=== PATIENT | male | born 1970 | race Two or more races ===

== ENCOUNTER 2018-01-04 11:52 | Emergency (ER) | payer MEDICAID, OTHER ==
[~2018-01-04] VITALS: Ht 172.7 cm; Wt 118.2 kg
[~2018-01-04 11:52] MED LIST: AMLO10TA PO; GLYB5TAB7 PO; LISI-600 PO; METF-438 PO; ONDA4TAB6 PO; TERA1CAP4 PO
[2018-01-04 12:10] VITALS: BP 159/108
[2018-01-04] MEDS ORDERED: LIDOcaine 1.5% w/epinephrine 1:200,000 5ml ampul IJ ONE (12:30)
[2018-01-04] MEDS ORDERED: HYDROcodone/acetaminophen 5mg/325mg tablet PO ONE (12:30)
[2018-01-04] MEDS ORDERED: ACET-3067 PO (13:06)
[2018-01-04] MEDS ORDERED: AMOX-422 PO (13:06)
[2018-01-04] MEDS ORDERED: LIDOcaine 1% w/epiNEPHrine 1:200,000 30ml vial IJ ONE (15:10)
== END 2018-01-04 13:31 | disposition home or self-care (01) ==
LOC: ER 11:53
DX: S61.411A Laceration without foreign body of right hand, initial encounter (principal); S61.451A Open bite of right hand, initial encounter; I10 Essential (primary) hypertension; E11.9 Type 2 diabetes mellitus without complications; Z79.899 Other long term (current) drug therapy; W54.0XXA Bitten by dog, initial encounter; Y93.89 Activity, other specified; Y92.89 Other specified places as the place of occurrence of the external cause; Y99.9 Unspecified external cause status
CPT/HCPCS: 12002; 73130; 99283; J3490

== ENCOUNTER 2018-01-14 11:13 | Emergency (ER) | payer OTHER ==
[~2018-01-14] VITALS: Ht 172.7 cm; Wt 120.0 kg
[2018-01-14 11:18] VITALS: BP 155/95
[2018-01-14] MEDS ORDERED: AMOX-422 PO (12:24)
== END 2018-01-14 12:41 | disposition home or self-care (01) ==
LOC: ER 11:15
DX: S61.411D Laceration without foreign body of right hand, subsequent encounter (principal); S61.451D Open bite of right hand, subsequent encounter; I10 Essential (primary) hypertension; E11.9 Type 2 diabetes mellitus without complications; Z79.84 Long term (current) use of oral hypoglycemic drugs; Z79.2 Long term (current) use of antibiotics; Z79.899 Other long term (current) drug therapy; W54.0XXD Bitten by dog, subsequent encounter
CPT/HCPCS: 99283

== ENCOUNTER 2018-04-22 02:15 | Emergency (ER) | payer MEDICAID, OTHER ==
[~2018-04-22] VITALS: Ht 172.7 cm; Wt 122.7 kg
[2018-04-22] MEDS ORDERED: cephalexin 250mg capsule PO ONE (03:35)
[2018-04-22] MEDS ORDERED: CEPH250T PO (03:36)
[2018-04-22] MEDS ORDERED: TRIA15CR61 TOP (03:36)
[2018-04-22] MEDS ORDERED: insulin regular, human 10 units/0.1 ml syringe SQ ONE (03:40)
[2018-04-22] MEDS ORDERED: insulin glargine (Lantus) pen - multi-dose SQ ONE (03:40)
== END 2018-04-22 04:15 | disposition home or self-care (01) ==
LOC: ER 02:16
DX: L30.9 Dermatitis, unspecified (principal); H00.013 Hordeolum externum right eye, unspecified eyelid; E11.65 Type 2 diabetes mellitus with hyperglycemia; I10 Essential (primary) hypertension
CPT/HCPCS: 82948; 96372; 99283; J1815

== ENCOUNTER 2018-05-26 19:25 | Emergency (ER) | payer MEDICAID, OTHER ==
[~2018-05-26] VITALS: Ht 172.7 cm; Wt 125.7 kg
[2018-05-26 19:33] VITALS: BP 157/84
[2018-05-26] MEDS: LIDOcaine 1% w/epiNEPHrine 1:200,000 30ml vial IM ONE (21:13)
[2018-05-26] MEDS: ketorolac tromethamine 15mg/ml inj. IM ONE (21:14)
[2018-05-26] MEDS ORDERED: AMOX-580 PO (21:19)
== END 2018-05-26 21:32 | disposition home or self-care (01) ==
LOC: ER 19:26
DX: S61.551A Open bite of right wrist, initial encounter (principal); I10 Essential (primary) hypertension; E11.9 Type 2 diabetes mellitus without complications; Z79.84 Long term (current) use of oral hypoglycemic drugs; Z79.899 Other long term (current) drug therapy; W54.0XXA Bitten by dog, initial encounter; Y93.89 Activity, other specified; Y92.89 Other specified places as the place of occurrence of the external cause; Y99.8 Other external cause status
CPT/HCPCS: 96372; 99283; J1885; J3490

== ENCOUNTER 2019-06-21 13:55 | Emergency (ER) | payer MEDICAID, OTHER ==
[~2019-06-21] VITALS: Ht 172.7 cm; Wt 128.5 kg
[2019-06-21] MEDS ORDERED: LIDOcaine 1% 30ml preserv. free vial IJ ONE (15:20)
[2019-06-21 16:07] VITALS: BP 126/85
== END 2019-06-21 16:10 | disposition home or self-care (01) ==
LOC: ER 13:55
DX: S61.112A Laceration without foreign body of left thumb with damage to nail, initial encounter (principal); I10 Essential (primary) hypertension; E11.9 Type 2 diabetes mellitus without complications; Z87.891 Personal history of nicotine dependence; Z79.899 Other long term (current) drug therapy; W26.0XXA Contact with knife, initial encounter; Y93.89 Activity, other specified; Y92.89 Other specified places as the place of occurrence of the external cause; Y99.9 Unspecified external cause status
CPT/HCPCS: 12001; 99282

== ENCOUNTER 2019-07-01 15:56 | Emergency (ER) | payer OTHER ==
[~2019-07-01] VITALS: Ht 172.7 cm; Wt 100.0 kg
[2019-07-01 16:06] VITALS: BP 162/88
--- NOTE | 2019-07-01 16:29 | NUR ---
healed wound.4 suture removed from lft thumb ,no redness swekking or tenderness noted to the site,informed to keep the wound cover with bandid.
== END 2019-07-01 16:31 | disposition home or self-care (01) ==
LOC: ER 15:58
DX: S61.012D Laceration without foreign body of left thumb without damage to nail, subsequent encounter (principal); I10 Essential (primary) hypertension; E11.9 Type 2 diabetes mellitus without complications; Z79.899 Other long term (current) drug therapy; X58.XXXD Exposure to other specified factors, subsequent encounter
CPT/HCPCS: 99281

== ENCOUNTER 2020-01-31 11:30 | Emergency (ER) | payer OTHER ==
[~2020-01-31] VITALS: Ht 172.7 cm; Wt 128.0 kg
[2020-01-31 12:12] VITALS: BP 156/82
== END 2020-01-31 16:12 | disposition home or self-care (01) ==
LOC: ER 11:30
DX: M25.562 Pain in left knee (principal); I10 Essential (primary) hypertension; E11.9 Type 2 diabetes mellitus without complications; Z79.899 Other long term (current) drug therapy
CPT/HCPCS: 73560; 99283

== ENCOUNTER 2020-09-23 09:15 | Emergency (ER) | payer SELFPAY ==
[~2020-09-23] VITALS: Ht 172.7 cm; Wt 127.3 kg
[~2020-09-23 09:15] MED LIST changes: -LISI-600 PO; +LISI20TA28 PO
[2020-09-23 09:22] VITALS: BP 149/96
[2020-09-23 09:50] LABS: BASOPHILS # (AUTO) 0.1 X10'3 (0-0.2); BASOPHILS % (AUTO) 0.6 % (0-1); EOSINOPHILS # (AUTO) 0.4 X10'3 (0-0.9); EOSINOPHILS % (AUTO) 3.7 % (0-6); HEMATOCRIT 39.9 % (42.0-52.0); LYMPHOCYTES # (AUTO) 1.4 X10'3 (1.1-4.8); LYMPHOCYTES % (AUTO) 14.3 % (21-51); MEAN CORPUSCULAR HEMOGLOBIN 27.3 PG (27.0-31.0); MEAN CORPUSCULAR HGB CONC 32.5 g/dL (33.0-36.5); MEAN CORPUSCULAR VOLUME 83.8 FL (78-98); MEAN PLATELET VOLUME 8.2 FL (7.4-10.4); MONOCYTES # (AUTO) 0.6 X10'3 (0-0.9); MONOCYTES % (AUTO) 6.1 % (2-12); NEUTROPHILS # (AUTO) 7.2 X10'3 (1.8-7.7); NEUTROPHILS % (AUTO) 75.3 % (42-75); PLATELET COUNT 412 X10'3 (140-440); RED BLOOD COUNT 4.76 X10'6 (4.70-6.10); RED CELL DISTRIBUTION WIDTH 15.5 % (11.5-14.5); WHITE BLOOD COUNT 9.5 X10'3 (4.5-11.0)
[2020-09-23 09:57] LABS: ALANINE AMINOTRANSFERASE 20 U/L (12-78); ALBUMIN 3.5 G/DL (3.4-5.0); ALBUMIN/GLOBULIN RATIO 0.8 (1.1-1.5); ALKALINE PHOSPHATASE 66 IU/L (46-116); ANION GAP 7 (8-16); ASPARTATE AMINO TRANSFERASE 14 U/L (10-37); BILIRUBIN,TOTAL 0.3 MG/DL (0.1-1.0); BLOOD UREA NITROGEN 15 MG/DL (7-18); BUN/CREATININE RATIO 18.3 (5.4-32.0); CALCIUM 8.6 MG/DL (8.5-10.1); CHLORIDE 105 MMOL/L (99-107); CREATININE 0.82 MG/DL (0.60-1.10); GLUCOSE 117 MG/DL (70-104); LIPASE 142 U/L (73-393); POTASSIUM 4.3 MMOL/L (3.5-5.1); SODIUM 140 MMOL/L (135-145); TOTAL PROTEIN 8.1 G/DL (6.4-8.2); eGFR > 90 ML/MIN
[2020-09-23 10:01] LABS: CLARITY,URINE CLEAR (Clear); COLOR,URINE YELLOW (Yellow); GLUCOSE, URINE NEGATIVE (Neg); KETONES,URINE NEGATIVE (Neg); LEUKOCYTE ESTERASE ,URINE NEGATIVE (Neg); NITRITES, URINE NEGATIVE (Neg); OCCULT BLOOD,URINE SMALL (Neg); PH,URINE 6.5 (4.8-8.0); PROTEIN,URINE 100 mg/dl (Neg)
[2020-09-23 10:04] LABS: UA COLLECTION TYPE VOIDED
[2020-09-23 10:21] LABS: BACTERIA,URINE NONE SEEN /HPF (Neg); SQUAMOUS EPITHELIAL CELL,UR NONE SEEN /LPF (FEW); WBC,URINE NONE SEEN /HPF (0-4)
== END 2020-09-23 10:56 | disposition home or self-care (01) ==
LOC: ER 09:15
DX: R10.32 Left lower quadrant pain (principal); R19.7 Diarrhea, unspecified; K59.00 Constipation, unspecified; I25.10 Atherosclerotic heart disease of native coronary artery without angina pectoris; I10 Essential (primary) hypertension; I25.2 Old myocardial infarction; E11.9 Type 2 diabetes mellitus without complications; Z90.49 Acquired absence of other specified parts of digestive tract; Z79.899 Other long term (current) drug therapy
CPT/HCPCS: 36415; 80053; 81001; 83690; 85025; 99283

== ENCOUNTER 2020-09-26 06:36 | Emergency (ER) | payer SELFPAY ==
[~2020-09-26] VITALS: Ht 172.7 cm; Wt 128.1 kg
[2020-09-26 07:12] VITALS: BP 142/84
[2020-09-26 10:13] LABS: BASOPHILS # (AUTO) 0.1 X10'3 (0-0.2); BASOPHILS % (AUTO) 0.8 % (0-1); EOSINOPHILS # (AUTO) 0.3 X10'3 (0-0.9); EOSINOPHILS % (AUTO) 3.5 % (0-6); HEMATOCRIT 38.3 % (42.0-52.0); HEMOGLOBIN 12.4 g/dl (14.0-17.9); LYMPHOCYTES # (AUTO) 1.4 X10'3 (1.1-4.8); LYMPHOCYTES % (AUTO) 16.7 % (21-51); MEAN CORPUSCULAR HEMOGLOBIN 27.3 PG (27.0-31.0); MEAN CORPUSCULAR HGB CONC 32.3 g/dL (33.0-36.5); MEAN CORPUSCULAR VOLUME 84.5 FL (78-98); MEAN PLATELET VOLUME 8.1 FL (7.4-10.4); MONOCYTES # (AUTO) 0.6 X10'3 (0-0.9); MONOCYTES % (AUTO) 7.4 % (2-12); NEUTROPHILS # (AUTO) 6.1 X10'3 (1.8-7.7); NEUTROPHILS % (AUTO) 71.6 % (42-75); PLATELET COUNT 405 X10'3 (140-440); RED BLOOD COUNT 4.53 X10'6 (4.70-6.10); WHITE BLOOD COUNT 8.5 X10'3 (4.5-11.0)
[2020-09-26 10:30] LABS: ALANINE AMINOTRANSFERASE 24 U/L (12-78); ALBUMIN 3.4 G/DL (3.4-5.0); ALBUMIN/GLOBULIN RATIO 0.7 (1.1-1.5); ALKALINE PHOSPHATASE 61 IU/L (46-116); ANION GAP 9 (8-16); ASPARTATE AMINO TRANSFERASE 17 U/L (10-37); BILIRUBIN,TOTAL 0.2 MG/DL (0.1-1.0); BLOOD UREA NITROGEN 16 MG/DL (7-18); CALCIUM 8.7 MG/DL (8.5-10.1); CHLORIDE 103 MMOL/L (99-107); CREATININE 0.89 MG/DL (0.60-1.10); GLUCOSE 133 MG/DL (70-104); POTASSIUM 3.9 MMOL/L (3.5-5.1); SODIUM 141 MMOL/L (135-145); TOTAL CARBON DIOXIDE 29.1 MMOL/L (24-32); eGFR > 90 ML/MIN
[2020-09-26] MEDS ORDERED: METR500T PO (12:39)
[2020-09-26] MEDS ORDERED: HYDR-3964 PO (12:39)
[2020-09-26] MEDS ORDERED: ONDA4TAB6 PO (12:39)
[2020-09-26] MEDS ORDERED: CIPR-259 PO (12:39)
[2020-09-26] MEDS ORDERED: ondansetron 4mg rapidly disintigrating tab PO ONE (12:40)
[2020-09-26] MEDS ORDERED: metroNIDAZOLE 500mg tablet PO ONE (12:40)
[2020-09-26] MEDS ORDERED: HYDROcodone/acetaminophen 5mg/325mg tablet PO ONE (12:40)
[2020-09-26] MEDS ORDERED: ciprofloxacin 250mg tablet PO ONE (12:40)
== END 2020-09-26 13:21 | disposition home or self-care (01) ==
LOC: ER 06:36
DX: E65 Localized adiposity (principal); K57.90 Diverticulosis of intestine, part unspecified, without perforation or abscess without bleeding; I11.9 Hypertensive heart disease without heart failure; E11.9 Type 2 diabetes mellitus without complications; Z79.899 Other long term (current) drug therapy
CPT/HCPCS: 36415; 74176; 80053; 83605; 84145; 85025; 99284; J3490

== ENCOUNTER 2020-10-10 08:30 | Emergency (ER) | payer OTHER ==
[~2020-10-10] VITALS: Ht 172.7 cm; Wt 140.0 kg
[~2020-10-10 08:30] MED LIST changes: +HYDR-3964 PO
[2020-10-10] MEDS ORDERED: ketorolac trometh inj. 60 MG/2 ML VIAL IM ONE (11:20)
[2020-10-10 11:37] LABS: BASOPHILS % (AUTO) 0.4 % (0-1); EOSINOPHILS # (AUTO) 0.2 X10'3 (0-0.9); EOSINOPHILS % (AUTO) 2.3 % (0-6); HEMATOCRIT 37.7 % (42.0-52.0); HEMOGLOBIN 11.9 g/dl (14.0-17.9); LYMPHOCYTES # (AUTO) 1.3 X10'3 (1.1-4.8); LYMPHOCYTES % (AUTO) 12.4 % (21-51); MEAN CORPUSCULAR HEMOGLOBIN 26.7 PG (27.0-31.0); MEAN CORPUSCULAR HGB CONC 31.7 g/dL (33.0-36.5); MEAN CORPUSCULAR VOLUME 84.3 FL (78-98); MEAN PLATELET VOLUME 8.1 FL (7.4-10.4); MONOCYTES # (AUTO) 0.8 X10'3 (0-0.9); MONOCYTES % (AUTO) 7.1 % (2-12); NEUTROPHILS # (AUTO) 8.3 X10'3 (1.8-7.7); NEUTROPHILS % (AUTO) 77.8 % (42-75); PLATELET COUNT 438 X10'3 (140-440); RED BLOOD COUNT 4.47 X10'6 (4.70-6.10); RED CELL DISTRIBUTION WIDTH 16.1 % (11.5-14.5); WHITE BLOOD COUNT 10.7 X10'3 (4.5-11.0)
[2020-10-10] MEDS ORDERED: colchicine 0.6mg tablet PO ONE (12:15)
[2020-10-10] MEDS ORDERED: COLC0.6T72 PO (12:17)
[2020-10-10] MEDS ORDERED: INDO50CA96 PO (12:17)
[2020-10-10 13:12] VITALS: BP 135/77
--- NOTE | 2020-10-10 13:12 | NUR ---
Pt given and understands d/c instructions. Escorted to his car via wheelchair.
== END 2020-10-10 13:18 | disposition home or self-care (01) ==
LOC: ER 08:30
DX: M10.9 Gout, unspecified (principal); I25.10 Atherosclerotic heart disease of native coronary artery without angina pectoris; I10 Essential (primary) hypertension; I25.2 Old myocardial infarction; E11.9 Type 2 diabetes mellitus without complications; Z90.49 Acquired absence of other specified parts of digestive tract; Z79.899 Other long term (current) drug therapy
CPT/HCPCS: 36415; 73610; 84550; 85025; 85651; 96372; 99284; J1885

== ENCOUNTER 2020-11-21 18:53 | Emergency (ER) | payer OTHER ==
[~2020-11-21] VITALS: Ht 172.7 cm; Wt 129.6 kg
[~2020-11-21 18:53] MED LIST changes: +COLC0.6T72 PO; -HYDR-3964 PO; +INDO50CA96 PO
[2020-11-21 19:04] VITALS: BP 204/109
[2020-11-21] MEDS ORDERED: aspirin 81mg tab.chew PO ONE (19:10)
[2020-11-21 19:41] LABS: BASOPHILS # (AUTO) 0.1 X10'3 (0-0.2); BASOPHILS % (AUTO) 0.9 % (0-1); EOSINOPHILS # (AUTO) 0.3 X10'3 (0-0.9); EOSINOPHILS % (AUTO) 2.5 % (0-6); HEMATOCRIT 37.2 % (42.0-52.0); HEMOGLOBIN 12.3 g/dl (14.0-17.9); LYMPHOCYTES # (AUTO) 1.7 X10'3 (1.1-4.8); MEAN CORPUSCULAR HEMOGLOBIN 27.3 PG (27.0-31.0); MEAN CORPUSCULAR VOLUME 82.7 FL (78-98); MEAN PLATELET VOLUME 7.9 FL (7.4-10.4); MONOCYTES # (AUTO) 0.8 X10'3 (0-0.9); MONOCYTES % (AUTO) 7.2 % (2-12); NEUTROPHILS # (AUTO) 8.6 X10'3 (1.8-7.7); NEUTROPHILS % (AUTO) 74.4 % (42-75); PLATELET COUNT 437 X10'3 (140-440); RED CELL DISTRIBUTION WIDTH 15.9 % (11.5-14.5); WHITE BLOOD COUNT 11.6 X10'3 (4.5-11.0)
[2020-11-21 19:57] LABS: ALANINE AMINOTRANSFERASE 26 U/L (12-78); ALBUMIN 3.7 G/DL (3.4-5.0); ALBUMIN/GLOBULIN RATIO 0.8 (1.1-1.5); ALKALINE PHOSPHATASE 70 IU/L (46-116); ANION GAP 13 (8-16); ASPARTATE AMINO TRANSFERASE 20 U/L (10-37); BILIRUBIN,TOTAL 0.2 MG/DL (0.1-1.0); BLOOD UREA NITROGEN 24 MG/DL (7-18); CALCIUM 9.1 MG/DL (8.5-10.1); CHLORIDE 104 MMOL/L (99-107); CREATININE 1.09 MG/DL (0.60-1.10); GLUCOSE 112 MG/DL (70-104); PARTIAL THROMBOPLASTIN TIME 29 SECONDS (22-32); POTASSIUM 3.9 MMOL/L (3.5-5.1); SODIUM 141 MMOL/L (135-145); TOTAL CARBON DIOXIDE 24.1 MMOL/L (24-32); TOTAL PROTEIN 8.5 G/DL (6.4-8.2); eGFR 72 ML/MIN
[2020-11-21 20:07] LABS: LIPASE 134 U/L (73-393)
== END 2020-11-22 00:10 | disposition home or self-care (01) ==
LOC: ER 18:53
DX: R07.89 Other chest pain (principal); I25.10 Atherosclerotic heart disease of native coronary artery without angina pectoris; I10 Essential (primary) hypertension; I25.2 Old myocardial infarction; E11.9 Type 2 diabetes mellitus without complications; Z90.49 Acquired absence of other specified parts of digestive tract; Z79.899 Other long term (current) drug therapy
CPT/HCPCS: 36415; 71045; 80053; 83690; 83735; 83880; 84484; 85025; 85610; 85730; 93005; 99285

== ENCOUNTER 2021-03-07 15:01 | Emergency (ER) | payer SELFPAY ==
[~2021-03-07] VITALS: Ht 172.7 cm; Wt 129.6 kg
[2021-03-07 15:19] VITALS: BP 171/93
--- NOTE | 2021-03-07 15:27 | NUR ---
SPOKE WITH ILAN BYERS. ACS PROTOCOL NOT NEEDED AT THIS TIME.
[2021-03-07] MEDS ORDERED: ketorolac trometh inj. 60 MG/2 ML VIAL IM ONE (16:00)
== END 2021-03-07 16:07 | disposition home or self-care (01) ==
LOC: ER 15:01
DX: S29.011A Strain of muscle and tendon of front wall of thorax, initial encounter (principal); R07.89 Other chest pain; I25.10 Atherosclerotic heart disease of native coronary artery without angina pectoris; I10 Essential (primary) hypertension; I25.2 Old myocardial infarction; E11.9 Type 2 diabetes mellitus without complications; Z90.49 Acquired absence of other specified parts of digestive tract; Z79.899 Other long term (current) drug therapy; X58.XXXA Exposure to other specified factors, initial encounter; Y93.89 Activity, other specified; Y92.89 Other specified places as the place of occurrence of the external cause; Y99.8 Other external cause status
CPT/HCPCS: 93005; 96372; 99283; J1885

== ENCOUNTER 2022-07-25 05:49 | Emergency (ER) | payer MEDICAID ==
[~2022-07-25] VITALS: Ht 172.7 cm; Wt 128.2 kg
[2022-07-25 06:36] LABS: CLARITY,URINE CLEAR (Clear); COLOR,URINE YELLOW (Yellow); GLUCOSE, URINE NEGATIVE (Neg); KETONES,URINE NEGATIVE (Neg); LEUKOCYTE ESTERASE ,URINE NEGATIVE (Neg); NITRITES, URINE NEGATIVE (Neg); OCCULT BLOOD,URINE MODERATE (Neg); PROTEIN,URINE >=300 mg/dl (Neg); UROBILINOGEN,URINE 0.2 E.U/dL (0.2-1.0)
[2022-07-25 06:37] LABS: UA COLLECTION TYPE CLN CATCH MIDSTREAM
[2022-07-25 06:53] LABS: BACTERIA,URINE NONE SEEN /HPF (Neg); MUCUS STRANDS NONE SEEN /LPF (Neg); RBC,URINE NONE SEEN /HPF (0-2); SQUAMOUS EPITHELIAL CELL,UR FEW /LPF (FEW); WBC,URINE 0-4 /HPF (0-4)
[2022-07-25] MEDS ORDERED: ketorolac tromethamine 15mg/ml inj. IV ONE (06:55)
[2022-07-25] MEDS ORDERED: morphine 4 MG/ML inj SYRINge IV ONE (06:55)
[2022-07-25] MEDS ORDERED: ondansetron/PF 4mg/2ml inj IV ONE (07:10)
[2022-07-25 07:19] LABS: BASOPHILS # (AUTO) 0.1 X10'3 (0-0.2); BASOPHILS % (AUTO) 0.9 % (0-1); EOSINOPHILS # (AUTO) 0.5 X10'3 (0-0.9); EOSINOPHILS % (AUTO) 4.6 % (0-6); HEMATOCRIT 40.8 % (42.0-52.0); HEMOGLOBIN 13.2 g/dl (14.0-17.9); LYMPHOCYTES # (AUTO) 1.5 X10'3 (1.1-4.8); LYMPHOCYTES % (AUTO) 15.3 % (21-51); MEAN CORPUSCULAR HEMOGLOBIN 28.2 PG (27.0-31.0); MEAN CORPUSCULAR HGB CONC 32.2 g/dL (33.0-36.5); MEAN CORPUSCULAR VOLUME 87.5 FL (78-98); MEAN PLATELET VOLUME 7.9 FL (7.4-10.4); MONOCYTES # (AUTO) 0.5 X10'3 (0-0.9); MONOCYTES % (AUTO) 5.4 % (2-12); NEUTROPHILS # (AUTO) 7.5 X10'3 (1.8-7.7); NEUTROPHILS % (AUTO) 73.8 % (42-75); PLATELET COUNT 428 X10'3 (140-440); RED BLOOD COUNT 4.67 X10'6 (4.70-6.10); RED CELL DISTRIBUTION WIDTH 15.1 % (11.5-14.5); WHITE BLOOD COUNT 10.1 X10'3 (4.5-11.0)
[2022-07-25 07:32] LABS: ALANINE AMINOTRANSFERASE 24 U/L (12-78); ALBUMIN 3.5 G/DL (3.4-5.0); ALBUMIN/GLOBULIN RATIO 0.8 (1.1-1.5); ALKALINE PHOSPHATASE 66 IU/L (46-116); ANION GAP 13 (8-16); ASPARTATE AMINO TRANSFERASE 20 U/L (10-37); BILIRUBIN,TOTAL 0.2 MG/DL (0.1-1.0); BLOOD UREA NITROGEN 26 MG/DL (7-18); BUN/CREATININE RATIO 23.2 (10.0-20.0); CALCIUM 9.4 MG/DL (8.5-10.1); CHLORIDE 101 MMOL/L (99-107); CREATININE 1.12 MG/DL (0.60-1.10); GLUCOSE 144 MG/DL (70-104); SODIUM 139 MMOL/L (135-145); TOTAL CARBON DIOXIDE 25.3 MMOL/L (24-32); TOTAL PROTEIN 7.8 G/DL (6.4-8.2); eGFR 69 ML/MIN
[2022-07-25 09:07] LABS: D-DIMER 0.27 MG/L FEU (0-0.50)
[2022-07-25] MEDS ORDERED: IBUP-1986 PO (09:28)
[2022-07-25] MEDS ORDERED: TRAM50TA2 PO (09:28)
[2022-07-25 09:36] VITALS: BP 142/85
== END 2022-07-25 09:50 | disposition home or self-care (01) ==
LOC: ER 05:50
DX: M54.9 Dorsalgia, unspecified (principal); I25.10 Atherosclerotic heart disease of native coronary artery without angina pectoris; I10 Essential (primary) hypertension; I25.2 Old myocardial infarction; E11.9 Type 2 diabetes mellitus without complications; Z90.49 Acquired absence of other specified parts of digestive tract; Z98.890 Other specified postprocedural states; Z79.899 Other long term (current) drug therapy; Z87.442 Personal history of urinary calculi
CPT/HCPCS: 36415; 74176; 80053; 81001; 85025; 85379; 96374; 96375; 99285; J1885; J2270; J2405

== ENCOUNTER 2022-08-23 09:19 | Emergency (ER) | payer MEDICAID ==
[~2022-08-23] VITALS: Ht 172.7 cm; Wt 143.0 kg
[~2022-08-23 09:19] MED LIST changes: +IBUP-1986 PO; +TRAM50TA2 PO
[2022-08-23 09:45] LABS: BASOPHILS # (AUTO) 0.1 X10'3 (0-0.2); BASOPHILS % (AUTO) 0.9 % (0-1); EOSINOPHILS # (AUTO) 0.4 X10'3 (0-0.9); EOSINOPHILS % (AUTO) 3.9 % (0-6); HEMOGLOBIN 12.9 g/dl (14.0-17.9); LYMPHOCYTES # (AUTO) 1.4 X10'3 (1.1-4.8); LYMPHOCYTES % (AUTO) 15.2 % (21-51); MEAN CORPUSCULAR HEMOGLOBIN 28.4 PG (27.0-31.0); MEAN CORPUSCULAR HGB CONC 32.2 g/dL (33.0-36.5); MEAN CORPUSCULAR VOLUME 88.1 FL (78-98); MEAN PLATELET VOLUME 7.8 FL (7.4-10.4); MONOCYTES # (AUTO) 0.6 X10'3 (0-0.9); MONOCYTES % (AUTO) 6.8 % (2-12); NEUTROPHILS # (AUTO) 6.7 X10'3 (1.8-7.7); NEUTROPHILS % (AUTO) 73.2 % (42-75); PLATELET COUNT 393 X10'3 (140-440); RED BLOOD COUNT 4.54 X10'6 (4.70-6.10); RED CELL DISTRIBUTION WIDTH 15.4 % (11.5-14.5); WHITE BLOOD COUNT 9.1 X10'3 (4.5-11.0)
[2022-08-23] MEDS ORDERED: normal saline 1000ml 1,000 ML IV ONE (09:50)
[2022-08-23] MEDS ORDERED: diltiazem 5mg/ml 5ml inj. IV ONE ×2 (09:50→10:25)
[2022-08-23 09:54] LABS: ALANINE AMINOTRANSFERASE 26 U/L (12-78); ALBUMIN 3.5 G/DL (3.4-5.0); ALBUMIN/GLOBULIN RATIO 0.9 (1.1-1.5); ALKALINE PHOSPHATASE 61 IU/L (46-116); ANION GAP 10 (8-16); ASPARTATE AMINO TRANSFERASE 18 U/L (10-37); BILIRUBIN,TOTAL 0.3 MG/DL (0.1-1.0); BLOOD UREA NITROGEN 25 MG/DL (7-18); BUN/CREATININE RATIO 18.2 (10.0-20.0); CALCIUM 9.3 MG/DL (8.5-10.1); CHLORIDE 103 MMOL/L (99-107); CREATININE 1.37 MG/DL (0.60-1.10); GLUCOSE 196 MG/DL (70-104); POTASSIUM 4.2 MMOL/L (3.5-5.1); SODIUM 141 MMOL/L (135-145); TOTAL PROTEIN 7.5 G/DL (6.4-8.2); eGFR 55 ML/MIN
[2022-08-23] MEDS ORDERED: metoprolol tartrate 1mg/ml inj IV ONE (10:50)
[2022-08-23] MEDS ORDERED: propofol 10mg/ml 20ml vial IV ONE (11:50)
--- NOTE | 2022-08-23 12:14 | NUR ---
SHOCK DELIVERED AT 1212 PT CONVERTED TO SINUS RHYTHM
[2022-08-23] MEDS ORDERED: metoprolol succinate 25mg (24-HOUR) SR. Tablet PO ONE (12:35)
[2022-08-23] MEDS ORDERED: BLOO1KIT81 TOP ×2 (12:37)
[2022-08-23] MEDS ORDERED: LOP25T PO ×2 (12:37)
[2022-08-23 13:15] VITALS: BP 130/79; PULSE 83; RESP 16; TEMP 97.7; O2SAT 96
[2022-08-25] MEDS ORDERED: BLOO1KIT81 TOP (12:28)
== END 2022-08-23 13:20 | disposition home or self-care (01) ==
LOC: ER 09:20
DX: I48.20 Chronic atrial fibrillation, unspecified (principal); I25.10 Atherosclerotic heart disease of native coronary artery without angina pectoris; I10 Essential (primary) hypertension; I25.2 Old myocardial infarction; E11.9 Type 2 diabetes mellitus without complications; Z90.49 Acquired absence of other specified parts of digestive tract; Z90.5 Acquired absence of kidney; Z79.899 Other long term (current) drug therapy
CPT/HCPCS: 36415; 71045; 80053; 83880; 84484; 85025; 92960; 93005; 96361; 96374; 96375; 96376; 99291; J3490; J7030; 94760; A4620

== ENCOUNTER 2022-10-18 17:46 | Emergency (ER) | payer MEDICAID ==
[~2022-10-18] VITALS: Ht 172.7 cm; Wt 130.0 kg
[~2022-10-18 17:46] MED LIST changes: +BLOO1KIT81 TOP; +LOP25T PO; -TRAM50TA2 PO
[2022-10-18 18:37] VITALS: BP 147/76; PULSE 71; RESP 16; TEMP 98.2; O2SAT 94
== END 2022-10-18 19:22 | disposition left against medical advice (07) ==
LOC: ER 17:46
DX: R51.9 Headache, unspecified (principal); Z53.21 Procedure and treatment not carried out due to patient leaving prior to being seen by health care provider
CPT/HCPCS: 99281